=== PATIENT | female | born 2000 | race Two or more races ===

== ENCOUNTER 2018-03-06 01:56 | Emergency (ER) | payer OTHER ==
[2018-03-06] MEDS ORDERED: ONDANSETRON 4 MG/2 ML VIAL ONE (02:05)
--- NOTE | 2018-03-06 02:07 | EDPHY ---
H & P Stated Complaint: CI Time Seen by Provider: 03/06/18 02:07 HPI/ROS: HPI CHIEF COMPLAINT: Alcohol Intoxication, fall, head injury HISTORY OF PRESENT ILLNESS: 17-year-old female, presents emergency room highly intoxicated alcohol. She is brought in by private vehicle with friends she was vomiting and unable to care for self. She fell multiple times with head strike. She presents emergency room highly intoxicated with alcohol Past Medical History: Anemia, thyroid disease Past Surgical History: No recent surgery Social History: Large amount of alcohol this evening. Friends at bedside reported large amount. Multiple shots. Multiple shots of vodka. Family History: Noncontributory ROS REVIEW OF SYSTEMS: 10 Systems were reviewed and negative with the exception of the elements mentioned in the history of present illness. Exam Constitutional Intoxicated, triage nursing summary reviewed, vital signs reviewed, Sleepy, smells of alcohol Eyes normal conjunctivae and sclera, horizontal beating nystagmus consistent acute alcohol intoxication, otherwise pupils equal and react to light HENT normal inspection, atraumatic, moist mucus membranes, no epistaxis, neck supple/ no meningismus, no raccoon eyes. Respiratory clear to auscultation bilaterally, normal breath sounds, no respiratory distress, no wheezing. Cardiovascular rate normal, regular rhythm, no murmur, no edema, distal pulses normal. Gastrointestinal soft, non-tender, no rebound, no guarding, normal bowel sounds, no distension, no pulsatile mass. Genitourinary no CVA tenderness. Musculoskeletal no midline vertebral tenderness, full range of motion, no calf swelling, no tenderness of extremities, no meningismus, good pulses, neurovascularly intact. Skin pink, warm, & dry, no rash, skin atraumatic. Neurologic sleepy, intoxicated with alcohol,, alert and oriented x 3, AAOx3, moves all 4 extremities equally, motor intact, sensory intact, CN II-XII intact , , normal vision, normal speech. Psychiatric normal mood/affect. Heme/Lymph/Immune no lymphadenopathy. Differential Diagnosis: Includes but is not limited to in a particular order acute alcohol intoxication, alcohol abuse, dehydration, electrolyte abnormality , nausea vomiting from acute alcohol intoxication Medical Decision Making: Plan for this patient IV establishment IV fluid bolus , IV Zofran for nausea, full cardiac tech, monitor for further clinical deterioration, CT scan head without contrast for head trauma in the setting of acute alcohol intoxication. Will obtain CT head without contrast as friends report that she fell multiple times with head strike. Re-evaluation: CT scan head without contrast negative for acute traumatic injury called to me by Dr. Faust. Patient's serum alcohol level 261. 0430: Patient re-evaluated resting comfortably. Clinically sober. Stable gait. Answers questions appropriately. In no acute distress. 0520: Patient re-evaluated this time feeling much better. Denies any focal complaints. Ambulates well. Clinically sober. Stable gait. Source: Patient - Personal History LMP (Females 10-55): Unknown Current Tetanus/Diphtheria Vaccine: Unsure Current Tetanus Diphtheria and Acellular Pertussis (TDAP): Unsure - Medical/Surgical History Hx Asthma: No Hx Chronic Respiratory Disease: No Hx Diabetes: No Hx Cardiac Disease: No Hx Renal Disease: No Hx Cirrhosis: No Hx Alcoholism: No Hx HIV/AIDS: No Hx Splenectomy or Spleen Trauma: No - Social History Smoking Status: Never smoked Constitutional: Initial Vital Signs Temperature (C) 36.4 C 03/06/18 02:00 Heart Rate 99 03/06/18 02:00 Respiratory Rate 16 03/06/18 02:00 Blood Pressure 128/89 H 03/06/18 02:00 O2 Sat (%) 94 03/06/18 02:00 O2 Delivery Mode Room Air Allergies/Adverse Reactions: Unable to Assess Allergy (Unverified 03/06/18 02:03) Medical Decision Making - Data Points Laboratory Results: Laboratory Results 03/06/18 02:00 03/06/18 02:00 03/06/18 03/06/18 02:00 02:00 WBC 6.88 10^3/uL 10^3/uL (3.80-9.50) RBC 3.99 10^6/uL L 10^6/uL (4.18-5.33) Hgb 10.1 g/dL L g/dL (12.6-16.3) Hct 31.5 % L % (38.0-47.0) MCV 78.9 fL L fL (81.5-99.8) MCH 25.3 pg L pg (27.9-34.1) MCHC 32.1 g/dL L g/dL (32.4-36.7) RDW 17.7 % H % (11.5-15.2) Plt Count 329 10^3/uL 10^3/uL (150-400) MPV 10.2 fL fL (8.7-11.7) Neut % (Auto) 44.4 % % (39.3-74.2) Lymph % (Auto) 39.1 % % (15.0-45.0) [place] % (Auto) 9.3 % % (4.5-13.0) Eos % (Auto) 6.1 % % (0.6-7.6) Baso % (Auto) 1.0 % % (0.3-1.7) Nucleat RBC Rel Count 0.0 % % (0.0-0.2) Absolute Neuts (auto) 3.05 10^3/uL 10^3/uL (1.70-6.50) Absolute Lymphs (auto) 2.69 10^3/uL 10^3/uL (1.00-3.00) Absolute Monos (auto) 0.64 10^3/uL 10^3/uL (0.30-0.80) Absolute Eos (auto) 0.42 10^3/uL H 10^3/uL (0.03-0.40) Absolute Basos (auto) 0.07 10^3/uL 10^3/uL (0.02-0.10) Absolute Nucleated RBC 0.00 10^3/uL 10^3/uL (0-0.01) Immature Gran % 0.1 % % (0.0-1.1) Immature Gran # 0.01 10^3/uL 10^3/uL (0.00-0.10) Sodium 141 mEq/L mEq/L (135-145) Potassium 3.4 mEq/L mEq/L (3.3-5.0) Chloride 107 mEq/L mEq/L (97-110) Carbon Dioxide 21 mEq/l L mEq/l (22-31) Anion Gap 13 mEq/L mEq/L (6-14) BUN 4 mg/dL L mg/dL (7-23) Creatinine 0.6 mg/dL mg/dL (0.6-1.0) Estimated GFR > 60 Glucose 112 mg/dL H mg/dL (70-100) Calcium 8.9 mg/dL mg/dL (8.5-10.4) Ethyl Alcohol 261 mg/dL H mg/dL (0-10) Medications Given: Discontinued Medications Sodium Chloride (Ns) 1,000 mls @ 0 mls/hr IV ONCE ONE PRN Reason: Wide Open Stop: 03/06/18 02:12 Last Admin: 03/06/18 02:29 Dose: 1,000 mls Ondansetron HCl (Zofran) 4 mg IVP EDNOW ONE Stop: 03/06/18 02:10 Last Admin: 03/06/18 02:10 Dose: 4 mg Departure - Departure Disposition: Home, Routine, Self-Care Clinical Impression: Alcoholic intoxication Condition: Good Instructions: Alcohol Intoxication (ED), Abuse of Alcohol (ED) Referrals: NONE *PRIMARY CARE P,. [Primary Care Provider] - As per Instructions
[2018-03-06] MEDS ORDERED: ONDANSETRON 4 MG/2 ML VIAL IVP ONE (02:09)
[2018-03-06] MEDS ORDERED: NS 1,000 ML IV ONE (02:11)
[2018-03-06 02:22] LABS: PLATELET COUNT 329 10^3/uL (150-400)
[2018-03-06 05:13] VITALS: BP 110/59
== END 2018-03-06 05:22 | disposition home or self-care (01) ==
DX: F10.920 Alcohol use, unspecified with intoxication, uncomplicated (principal); E86.9 Volume depletion, unspecified; W19.XXXA Unspecified fall, initial encounter; Y92.9 Unspecified place or not applicable; Y90.8 Blood alcohol level of 240 mg/100 ml or more
CPT/HCPCS: 96374; G0480; J2405